=== PATIENT | male | born 1975 | race Caucasian/White ===

== ENCOUNTER 2024-09-06 11:36 | Emergency (ER) | payer BC ==
[~2024-09-06] VITALS: Ht 177.8 cm; Wt 99.8 kg
[2024-09-06] MEDS ORDERED: Acetaminophen/Hydrocodone 5 MG/325 MG TABLET PO ONE (11:55)
[2024-09-06] MEDS ORDERED: NAPROSYN500 MG PO (13:58)
== END 2024-09-06 14:22 | disposition home or self-care (01) ==
LOC: ED 11:36
DX: S20.211A Contusion of right front wall of thorax, initial encounter (principal); S40.021A Contusion of right upper arm, initial encounter; W22.8XXA Striking against or struck by other objects, initial encounter; Y93.89 Activity, other specified; Y92.89 Other specified places as the place of occurrence of the external cause; Y99.8 Other external cause status